=== PATIENT | male | born 1935 | race Caucasian/White ===

== ENCOUNTER 2016-07-14 07:55 | Inpatient (IN) | payer OTHER ==
--- NOTE | ~2016-07-14 | EKG ---
PATIENT: THOMAS LUCIANO UNIT #: [id number] Ventricular Rate: 73 BPM Atrial Rate: 73 BPM P-R Interval: 200 ms QRS Duration: 102 ms Q-T Interval: 420 ms QTC Calculation(Bezet): 462 ms P [place]: 27 degrees Calculated R [place]: -6 degrees Calculated T [place]: -4 degrees Diagnosis Line: Sinus rhythm with Premature atrial complexes Diagnosis Line: Otherwise normal ECG Diagnosis Line: No previous ECGs available Diagnosis Line: Confirmed by ANISA KARIMI MD ([id number]) on 07/15/2016 Diagnosis Line: 6:16:49 PM INTERPRETING MD: SACHI OLIVARES
--- NOTE | ~2016-07-14 | DS ---
Unit #: [id number] #: [id number] Patient: THOMAS LUCIANO [id number] [address] [place], [place] [address] [id number] I MR#: [id number] NAME: THOMAS LUCIANO. ROOM: [facility] Age: 81 Sex: M Admission Date: 07/14/2016 : 1935 Discharge Date: 07/15/2016 Attending Physician: Mika Lilly M.D. Primary Care Physician: Edna Panda M.D. DISCHARGE SUMMARY ADMITTING DIAGNOSIS Left glenohumeral joint arthritis. DISCHARGE DIAGNOSIS Left glenohumeral joint arthritis, status post left reverse shoulder arthroplasty. SECONDARY DIAGNOSES 1. Benign prostatic hypertrophy. 2. Osteoarthritis. 3. Hypertension. 4. Vertigo. ATTENDING Dr. Lilly - Orthopedic Surgery. PROCEDURE On 07/14/2016, the patient underwent a left total reverse shoulder arthroplasty. Please see operative report for further details. BRIEF HISTORY Mr. Luciano is an 81-year-old patient of ours who has a long history of left shoulder glenohumeral joint arthritis. 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 He has failed to get any pain relief from conservative treatment so we discussed left reverse shoulder arthroplasty with the patient. The benefits, risks and alternatives were discussed with the patient and he elected to proceed with surgery on 07/14/2016. HOSPITAL COURSE On the night of surgery, the patient was transferred to the orthopedic unit for postoperative care. The patient remained stable overnight. On postop day #1, the patient's vital signs remained stable. He was awake, alert and oriented x3, in no acute distress. His left upper extremity incision was examined which was clean, dry and intact. There was no surrounding erythema, warmth or hematoma. He was neurovascularly intact in the median, ulnar and radial nerves. He had normal sensation to light touch in all five digits. X-ray of the left shoulder postoperatively showed that he was status post left reverse shoulder arthroplasty, hardware remained in correct anatomical alignment, no evidence of loosening or migration. The patient has worked with physical therapy today on pendulums as well as range of motion of elbow, wrist and hand. The patient was cleared by the physical therapist to be safe for Unit #: [id number] #: [id number] Patient: THOMAS LUCIANO discharge home. The patient is currently on aspirin and SCDs for DVT prophylaxis. He is non-weight bearing on his left upper extremity and in a sling. The patient is not complaining of any left shoulder pain at this time. He feels that his pain is well controlled with his current pain medications. CONDITION AT DISCHARGE Stable. DISPOSITION The patient will be DC'd home where he has family to help with postoperative care. DISCHARGE MEDICATIONS Percocet 5/325 mg, one to two tabs p.o. q.4 hours p.r.n., dispense #65. The patient was sent home with a script for Percocet. DISCHARGE INSTRUCTIONS The patient will follow up with Dr. Lilly in two weeks time. He will remain non-weight bearing in the left upper extremity and in his sling. He may remove the sling two to three times per day to perform pendulums as well as range of motion in the elbow, wrist and hand. He will perform daily dressing changes to the left upper extremity. He knows that he is not to get his incision wet. He may shower but must keep an occlusive dressing over the incision when showering. Dictated by... Dinora Adams APRN for Keny Phan/nelda TD: 07/16/2016 09:42 JOB #: [id number] DISCHARGE SUMMARY X DINORA ADAMS APRN X DISCHARGE SUMMARY
--- NOTE | ~2016-07-14 | CR229 ---
[facility] A Service of [facility] RADIOLOGY TEXT RESULTS PATIENT: THOMAS LUCIANO LOCATION: [facility] [id number] : [birth year] UNIT #: [id number] AGE: [address]: Mika Lilly MD SEX: M ORDER DR: [id number] [facility] [address] [place], [place] [address] [id number] I MR#: [id number] Acc #: [id number] NAME: THOMAS LUCIANO. : 1935 SEX: M STUDY DATE/TIME: 07/14/2016 12:57 UNIT: [facility] ROOM: [facility] STUDY DESCRIPTION: CR Shoulder Min 2 View Lt Attending Physician: Mika Lilly M.D. Referring Physician: Suleiman Amin M.D. Ordering Physician: Mika Lilly M.D. Primary Care Physician: Edna Panda M.D. MEDICAL IMAGING REPORT This report is preliminary unless electronic signature is present EXAM Left shoulder series. DATE OF EXAM 07/14/2016 HISTORY Postop total PACU front, postop left shoulder replacement. FINDINGS AP, internal and external rotation views of the left shoulder are presented. Status post left shoulder arthroplasty. Orthopedic hardware normally located and aligned. Remaining manzanita bony structures show no evidence of fracture or malalignment. Subcutaneous air in the operative bed. Hand artifact over proximal left upper arm. The visualized ribs are intact. Visualized left pulmonary parenchyma shows patchy and linear/band-like densities in the left frg-tv-snuss lung zones likely postoperative atelectasis. Correlate with any clinical concern for developing pneumonia. Dictated by... Rolando Jimenez M.D. THIS IS AN ELECTRONICALLY VERIFIED REPORT Rolando Jimenez M.D. at 07/15/2016 12:31 PM Angel TD: 07/14/2016 15:20 JOB #: [id number] MEDICAL IMAGING REPORT COPY
--- NOTE | ~2016-07-14 | OR ---
Unit #: [id number] #: [id number] Patient: THOMAS LUCIANO [id number] [address] [place], [place] [address] [id number] I MR#: [id number] NAME: THOMAS LUCIANO. ROOM: 458 Date of Procedure: 07/14/2016 Admission Date: 07/14/2016 Surgeon: Mika Lilly M.D. : 1935 Attending Physician: Mika Lilly M.D. Primary Care Physician: Edna Panda M.D. OPERATIVE REPORT PREOPERATIVE DIAGNOSIS Left shoulder glenohumeral joint osteoarthritis. POSTOPERATIVE DIAGNOSES 1. Left shoulder glenohumeral joint osteoarthritis. 2. Left shoulder biceps tenosynovitis. PROCEDURES PERFORMED 1. Left reverse shoulder arthroplasty. 2. Left shoulder biceps tenodesis. IMPLANTS 1. [employer] P2 baseplate with a 32, neutral glenosphere. 2. DJO Surgical AltiVate size 12 press-fit humeral stem with a 32, +4 semiconstrained humeral socket liner. PAPER MACHINE TENDER ADAN Hickman. ANESTHESIA General with interscalene nerve block. ESTIMATED BLOOD LOSS 100 mL. COMPLICATIONS None apparent. DRAINS Medium Hemovac x1. INDICATIONS FOR PROCEDURE Mr. Mahmood is an 81-year-old gentleman with a longstanding history of left shoulder glenohumeral joint osteoarthritis. He has a partial-thickness tearing of the supraspinatus. Given his age 81, he is at somewhat increased risk for a rotator cuff failure following a traditional anatomic total shoulder arthroplasty. We therefore discussed possible reverse shoulder arthroplasty. We discussed risks, benefits, and alternatives of the surgery including the nature of his surgery and expected recovery, he elected to proceed. DESCRIPTION OF PROCEDURE Unit #: [id number] #: [id number] Patient: THOMAS LUCIANO The patient was identified in the preoperative holding area. The operative site was marked. Preoperative antibiotics were administered. A regional anesthetic block was performed. The patient was brought to the operating room and placed supine on the operating table. A general anesthetic was induced. The patient was positioned into the beach-chair position. The left upper extremity was then prepped and draped in sterile fashion. A standard deltopectoral incision was performed. Dissection was carried down to the subcutaneous tissue to the deltopectoral interval. The cephalic vein was taken medially with the pectoralis major. The subdeltoid space was developed as was the subacromial and subcoracoid spaces. The long head of the biceps tendon sheath was opened. The biceps was noted to have tearing with calcific appearing deposit along the course of the tendon itself. The decision was made to proceed with tenodesis. A #2 FiberWire was used to perform a tenodesis to the superior border of the pectoralis major tendon with a running locking Krackow stitch. The biceps tendon sheath was then opened up to the base of the labrum. The proximal biceps was excised. The subscapularis was taken down on a direct peel off the lesser tuberosity. The shoulder was dislocated anteriorly. Osteophytes were removed. There was full-thickness cartilage loss on the humeral head with eburnated bone noted on the head. The humeral head extramedullary cutting guide was pinned in place and the humeral head osteotomy performed in approximately 40 degrees of retroversion. The humerus was then subluxed posteriorly. We had easy access to the glenoid. A circumferential capsular labral release was performed. There was an anterior-inferior osteophyte on the glenoid, which was removed with an osteotome. Once we had adequate exposure, the centering hole was drilled followed by insertion of the reaming tap. We then reamed sequentially to the desired depth to achieve some bleeding subchondral bone. We then removed the reaming tap and inserted the baseplate, which achieved solid purchase such that further attempts to rotate the baseplate resulted in scapular rotation. We then placed 4 peripheral locking screws measuring 26 superiorly, 14 posteriorly, 18 inferiorly and anteriorly. A 32 neutral glenosphere was then impacted in place. Attention was then brought back to the humerus. The humerus was exposed anteriorly and a freehand ball reaming technique performed. We then sounded the canal up to a size 10 and a 12 reamer and ultimately implanted the real size 12 component, which achieved good solid press-fit. We then trialed multiple combinations of humeral socket liner ultimately selecting a +4 semiconstrained liner. The real liner was impacted in place and the shoulder reduced. The arm was taken through range of motion was stable. The wound was then irrigated with dilute Betadine solution followed by pulsatile lavage. The deltopectoral interval was closed over drain with 0 Vicryl followed by 2-0 Vicryl in the subcutaneous tissues and a running Monocryl in the skin. Steri-Strips and sterile dressings were applied. The patient was placed in a shoulder immobilizer. DISPOSITION Stable to the recovery room. Dictated by... Mika Lilly M.D. Unit #: [id number] #: [id number] Patient: THOMAS LUCIANO LIZETT/sandeep TD: 07/15/2016 02:13 JOB #: [id number] OPERATIVE REPORT X Mika Lilly MD X PROCEDURE OPERATIVE NOTE
[~2016-07-14 07:55] MED LIST: NO MEDICATIONS
[2016-07-14 08:50] LABS: HEMATOCRIT 44.8 % (38.0-50.0); HEMOGLOBIN 15.1 gm/dL (13.0-16.0); MEAN CELL VOLUME 92.5 FL (83-96); MEAN CORPUSCULAR HEMOGLOBIN 31.1 PG (28-34); MEAN CORPUSCULAR HGB CONC 33.6 g/dL (30-36); MEAN PLATELET VOLUME 8.7 FL (6.5-11.5); RED BLOOD COUNT 4.85 X10e (3.90-5.60); RED CELL DISTRIBUTION WIDTH 14.2 % (11.0-15.5); WHITE BLOOD COUNT 8.1 X10e3 (4.0-10.5)
[2016-07-14 09:19] LABS: ALKALINE PHOSPHATASE 57 U/L (32-92); ALT (SGPT) 11 U/L (10-40); AST (SGOT) 20 U/L (10-42); BILIRUBIN,TOTAL 1.1 mg/dL (0.2-2.0); BLOOD UREA NITROGEN 21 mg/dL (9-23); BUN/CREATININE RATIO 26.25; CARBON DIOXIDE 27 mmol/L (22-31); CHLORIDE 106 mmol/L (100-111); CREATININE SERUM 0.8 mg/dL (0.6-1.4); GLOM FILT RATE Estimated ABOVE60 mL/min (>60); GLUCOSE FASTING 90 mg/dL (70-110); POTASSIUM 4.1 mmol/L (3.5-5.1); PROTEIN TOTAL SERUM 6.9 g/dL (6.0-8.3); SODIUM 141 mmol/L (135-145)
[2016-07-15] MEDS ORDERED: PERCOCET5/325 PO (14:39)
== END 2016-07-15 15:15 | disposition home or self-care (01) | DRG 483 ==
LOC: CSUR 07:55 → CPACUOF 12:00 → C4B 13:50
PROVIDERS: Orthopaedic Surgery
PROC: 0LS40ZZ Reposition Left Upper Arm Tendon, Open Approach (ICD-10-PCS; 2016-07-14)
PROC: 0RRK00Z Replacement of Left Shoulder Joint with Reverse Ball and Socket Synthetic Substitute, Open Approach (ICD-10-PCS; principal; 2016-07-14 10:00)
DX: M19.012 Primary osteoarthritis, left shoulder (principal); I10 Essential (primary) hypertension; M65.812 Other synovitis and tenosynovitis, left shoulder; N40.0 Benign prostatic hyperplasia without lower urinary tract symptoms; E78.5 Hyperlipidemia, unspecified; R42 Dizziness and giddiness; Z80.3 Family history of malignant neoplasm of breast; Z82.61 Family history of arthritis
CPT/HCPCS: 73030; 80053; 82947; 85027; 93005; 97110; 97116; 97163; 97530; C1713; C1776; G8978-GP; G8979-GP; G8980-GP; J0131; J0330; J0690; J2250; J2270; J2370; J2405; J2710; J3010